=== PATIENT | male | born 1980 | race Caucasian/White ===

== ENCOUNTER 2017-11-28 00:04 | Emergency (ER) | payer BC ==
[2017-11-28 00:10] VITALS: BP 134/80; PULSE 82; RESP 18; TEMP 98.3
[2017-11-28] MEDS ORDERED: DIPH,PERTUS(ACELL)TETVAC-LF 0.5 ML VIAL IM ONE (00:36)
[2017-11-28] MEDS ORDERED: LIDOCAINE 1% INJ 10MG/ML (20 ML MDV) SQ ONE (00:37)
--- NOTE | 2017-11-28 00:41 | ED ---
Wound/Laceration HPI - General Chief Complaint: Wound/Laceration Stated Complaint: Hand Laceration Time Seen by Provider: 11/28/17 00:25 Source: patient, RN notes reviewed Mode of arrival: ambulatory Limitations: no limitations - History of Present Illness Initial Comments: This a 37-year-old male presents emergency from chief complaint laceration to his right hand fifth digit. Patient states he was using a crowbar and hammer states it slipped causing a laceration to his digit. He has full range of motion. Patient's unsure when his last tetanus was. Patient states there was a large amount of bleeding which has subsided at this time. Denies any paresthesias. Patient offers no other complaints. - Related Data Home Medications Medication Instructions Recorded Confirmed No Known Home Medications [No 11/28/17 11/28/17 Known Home Medications] Allergies Allergy/AdvReac Type Severity Reaction Status Date / Time No Known Allergies Allergy Verified 11/28/17 00:10 Review of Systems ROS Statement: Those systems with pertinent positive or pertinent negative responses have been documented in the HPI. ROS Other: All systems not noted in ROS Statement are negative. Past Medical History Past Medical History: No Reported History History of Any Multi-Drug Resistant Organisms: None Reported Past Surgical History: No Surgical Hx Reported Past Psychological History: No Psychological Hx Reported Smoking Status: Never smoker Past Alcohol Use History: Occasional Past Drug Use History: None Reported General Exam Limitations: no limitations General appearance: alert, in no apparent distress Head exam: Present: atraumatic, normocephalic, normal inspection Respiratory exam: Present: normal lung sounds bilaterally. Absent: respiratory distress, wheezes, rales, rhonchi, stridor Cardiovascular Exam: Present: regular rate, normal rhythm, normal heart sounds. Absent: systolic murmur, diastolic murmur, rubs, gallop, clicks Extremities exam: Present: other (Right hand fifth digit there is a 1cm laceration at the DIP patient has full range of motion no active bleeding nail is intact.) Course Vital Signs 11/28/17 00:05 Temperature 98.3 F Pulse Rate 82 Respiratory 18 Rate Blood Pressure 134/80 O2 Sat by Pulse 99 Oximetry Procedures - Laceration Laceration #1 Consent Obtained: verbal consent Indication: laceration Site: hand (Right hand 5th) Size (cm): 1 Description: linear Depth: simple, single layer Anesthetic Used: lidocaine 1%, without epi Anesthesia Technique: local infiltration Amount (mls): 3 Pre-repair: wound explored, irrigated extensively, deep structures intact Type of Sutures: nylon Size of Sutures: 4-0 Number of Sutures: 4 Technique: simple, interrupted Patient Tolerated Procedure: well, no complications Medical Decision Making - Medical Decision Making 37-year-old male presents from for laceration. Patient's wound was cleaned, tetanus is updated and patient's laceration was closed using sutures. Return parameters were discussed. Wound care was discussed Disposition Clinical Impression: Laceration of finger of right hand Disposition: HOME SELF-CARE Condition: Stable Instructions: Care For Your Stitches (ED), Finger Laceration (ED) Additional Instructions: Have sutures removed in 10 days.Please return to the Emergency Department if symptoms worsen or any other concerns. Is patient prescribed a controlled substance at d/c from ED?: No Referrals: Jesica Ruiz DO [Primary Care Provider] - 1-2 days Time of Disposition: 00:40
== END 2017-11-28 01:04 | disposition home or self-care (01) ==
LOC: EC 00:04
DX: S61.216A Laceration without foreign body of right little finger without damage to nail, initial encounter (principal); Z23 Encounter for immunization; W27.8XXA Contact with other nonpowered hand tool, initial encounter; Y92.009 Unspecified place in unspecified non-institutional (private) residence as the place of occurrence of the external cause
CPT/HCPCS: 99282; 12001; 90471; 90715; J2001

== ENCOUNTER 2022-04-16 08:25 | Day surgery (SDC) | payer OTHER ==
[2022-04-14 10:40] VITALS: BMI 38.2
[~2022-04-16 08:25] MED LIST: LACTATED RINGERS 1,000 ML IV SCH
[2022-04-16 08:57] VITALS: TEMP 97.7
[2022-04-16] MEDS ORDERED: LIDOCAINE 2% INJ 20 MG/ML (2 ML VIAL) ONE (10:09)
[2022-04-16] MEDS ORDERED: PROPOFOL 10 MG/ML 20 ML VIAL IV ONE (10:09)
--- NOTE | 2022-04-16 10:12 | P.GSHP ---
History of Present Illness H&P Date: 04/16/22 Chief Complaint: Diverticulitis This a 41-year-old male with history of diverticulitis. Patient presents today for colonoscopy Past Medical History Past Medical History: Hypertension Additional Past Medical History / Comment(s): Diverticulitis. History of Any Multi-Drug Resistant Organisms: None Reported Past Surgical History: Orthopedic Surgery Additional Past Surgical History / Comment(s): Trigger thumbs surgery. Past Anesthesia/Blood Transfusion Reactions: Motion Sickness Additional Past Anesthesia/Blood Transfusion Reaction / Comment(s): Motion sickness as a child, none since. Past Psychological History: No Psychological Hx Reported Smoking Status: Never smoker Past Alcohol Use History: Occasional Past Drug Use History: None Reported - Past Family History Mother Family Medical History: Cancer Additional Family Medical History / Comment(s): Skin cancer. Medications and Allergies Home Medications Medication Instructions Recorded Confirmed Type Losartan Potassium 50 mg PO QAM 04/14/22 04/16/22 History Duarte-3/Dha/Epa/Fish Oil [Fish Oil 1 each PO DAILY 04/14/22 04/14/22 History 1,000 mg Softgel] Allergies Allergy/AdvReac Type Severity Reaction Status Date / Time No Known Allergies Allergy Verified 04/16/22 08:57 Surgical - Exam Vital Signs Temp Pulse Resp BP Pulse Ox 97.7 F 78 16 128/75 97 04/16/22 08:56 04/16/22 08:56 04/16/22 08:56 04/16/22 08:56 04/16/22 08:56 - General well developed, well nourished, no distress - Eyes PERRL - ENT normal pinna - Neck no masses - Respiratory normal expansion - Cardiovascular Rhythm: regular - Abdomen Abdomen: soft, non tender Assessment and Plan Assessment: Diverticula is. We'll perform colonoscopy
--- NOTE | 2022-04-16 10:23 | P.OP ---
Date of Procedure: 04/16/22 Preoperative Diagnosis: Diverticulitis Postoperative Diagnosis: Mild diverticulosis Procedure(s) Performed: Colonoscopy Anesthesia: MAC Surgeon: Chaim Win Pathology: none sent Condition: stable Disposition: PACU Description of Procedure: The patient's placed on the endoscopy table in the lateral position. He received IV sedation. Digital rectal exam was performed. No abnormalities. The flexible colonoscope was then placed patient anus and passed throughout the entire colon. The ileocecal valve was visualized. Cecum, ascending and transverse colon appeared normal. In the descending and sigmoid colon there was a few small diverticuli seen. There was no evidence of diverticulitis. The scope was then withdrawn and brought back the rectum and this appeared normal. The scope withdrawn for patient.
[2022-04-16 10:28] VITALS: RESP 18
[2022-04-16 10:45] VITALS: BP 110/72; PULSE 72
[2022-04-16] MEDS ORDERED: METOCLOPRAMIDE 5 MG/ML 2 ML VIAL IVP ONE (10:59)
== END 2022-04-16 11:11 | disposition home or self-care (01) ==
LOC: ORWHC2ENDO 08:25
PROVIDERS: ATTEND Surgery
DX: K57.30 Diverticulosis of large intestine without perforation or abscess without bleeding (principal); I10 Essential (primary) hypertension; F10.90 Alcohol use, unspecified, uncomplicated; Z98.890 Other specified postprocedural states; Z80.8 Family history of malignant neoplasm of other organs or systems; T75.3XXD Motion sickness, subsequent encounter
CPT/HCPCS: 45378; J2704; J2001